=== PATIENT | female | born 1985 ===

== ENCOUNTER 2021-04-13 20:37 | Inpatient (IN) | payer MEDICAID ==
[2021-04-13 21:40] LABS: Basophils # (Auto) 0.1 K/mm3 (0.0-0.1); Basophils % (Auto) 0.9 % (0.0-1.8); Eosinophils # (Auto) 0.2 K/mm3 (0.0-0.4); Eosinophils % (Auto) 2.4 % (0.0-4.3); Hematocrit 34.7 % (30.3-42.9); Hemoglobin 11.2 gm/dl (10.1-14.3); Lymphocytes % (Auto) 34.4 % (13.4-35.0); Mean Corpuscular HGB Conc 32 % (30-34); Mean Corpuscular Volume 99 fl (79-97); Monocytes # (Auto) 0.6 K/mm3 (0.0-0.8); Monocytes % (Auto) 7.1 % (0.0-7.3); Red Blood Count 3.52 M/mm3 (3.65-5.03); Red Cell Distribution Width 14.5 % (13.2-15.2)
[2021-04-13 22:05] LABS: Alanine Aminotransferase 11 units/L (7-56); Albumin 3.1 g/dL (3.9-5); Blood Urea Nitrogen 12 mg/dL (7-17); Calcium 8.4 mg/dL (8.4-10.2); Hemolysis Index 24
[2021-04-13 22:19] LABS: BUN/Creatinine Ratio 24
[2021-04-13 22:31] LABS: Platelet Count 212 K/mm3 (140-440)
[2021-04-14] MEDS ORDERED: MORPHINE 4 MG/1 ML INJ IV ONE ×2 (01:18→03:22)
--- NOTE | 2021-04-14 01:18 | Emergency Department Report ---
ED General Adult HPI - General Chief complaint: Abdominal Pain Stated complaint: PAIN ON LT ABD SIDE FROM SURGERY Time Seen by Provider: 04/14/21 00:47 Source: patient Mode of arrival: Ambulatory Limitations: No Limitations - History of Present Illness Initial comments: Patient is a 35-year-old female who presents with abdominal pain. Patient states that her abdominal pain started getting worse for the last 2 days patient has also been having vomit the vomit is nonbloody nonbilious. She states she had surgery on her colon February in [facility] she states that the pain she is having now is similar to that time when she had surgery - Related Data Allergies Allergy/AdvReac Type Severity Reaction Status Date / Time Latex, Natural Rubber Allergy Hives Verified 04/13/21 21:01 ED Review of Systems ROS: Stated complaint: PAIN ON LT ABD SIDE FROM SURGERY Other details as noted in HPI Constitutional: denies: chills, fever Eyes: denies: eye pain, eye discharge, vision change ENT: denies: ear pain, throat pain Respiratory: denies: cough, shortness of breath, wheezing Cardiovascular: denies: chest pain, palpitations Endocrine: no symptoms reported Gastrointestinal: abdominal pain, nausea, vomiting. denies: diarrhea Genitourinary: denies: urgency, dysuria, discharge Musculoskeletal: denies: back pain, joint swelling, arthralgia Skin: denies: rash, lesions Neurological: denies: headache, weakness, paresthesias Psychiatric: denies: anxiety, depression Hematological/Lymphatic: denies: easy bleeding, easy bruising ED Past Medical Hx - Surgical History Additional Surgical History: gastric bypass 2018, abd surgery February 2021 - Social History Smoking Status: Never Smoker Substance Use Type: None ED Physical Exam - General Limitations: No Limitations General appearance: alert, in no apparent distress - Head Head exam: Present: atraumatic, normocephalic - Eye Eye exam: Present: normal appearance - ENT ENT exam: Present: mucous membranes moist - Neck Neck exam: Present: normal inspection - Respiratory Respiratory exam: Present: normal lung sounds bilaterally. Absent: respiratory distress - Cardiovascular Cardiovascular Exam: Present: regular rate, normal rhythm. Absent: systolic murmur, diastolic murmur, rubs, gallop - GI/Abdominal GI/Abdominal exam: Present: soft, tenderness (left abd tenderness ) - Extremities Exam Extremities exam: Present: normal inspection - Back Exam Back exam: Present: normal inspection - Neurological Exam Neurological exam: Present: alert, oriented X3 - Psychiatric Psychiatric exam: Present: normal affect, normal mood - Skin Skin exam: Present: warm, dry, intact, normal color. Absent: rash ED Course Vital Signs 04/13/21 04/14/21 21:02 00:38 Temperature 97.9 F Pulse Rate 102 H 86 Respiratory 18 17 Rate Blood Pressure 140/93 Blood Pressure 138/96 [Left] O2 Sat by Pulse 98 99 Oximetry - Consultations Consultation #1: 04/14/21 03:[address] Doe he states that he will come see the patient in the morning and then the patient will need an NG tube Consultation #2: 04/14/21 03:[address] Soliz hospitalist he states that he will admit the patient to the hospital ED Medical Decision Making - Lab Data Result diagrams: 04/13/21 21:15 04/13/21 21:15 Lab Results 04/13/21 04/13/21 04/13/21 Range/Units 21:15 21:15 21:15 WBC 8.6 (4.5-11.0) K/mm3 RBC 3.52 L (3.65-5.03) M/mm3 Hgb 11.2 (10.1-14.3) gm/dl Hct 34.7 (30.3-42.9) % MCV 99 H (79-97) fl MCH 32 (28-32) pg MCHC 32 (30-34) % RDW 14.5 (13.2-15.2) % Plt Count 212 (140-440) K/mm3 Lymph % (Auto) 34.4 (13.4-35.0) % [place] % (Auto) 7.1 (0.0-7.3) % Eos % (Auto) 2.4 (0.0-4.3) % Baso % (Auto) 0.9 (0.0-1.8) % Lymph # (Auto) 3.0 (1.2-5.4) K/mm3 [place] # (Auto) 0.6 (0.0-0.8) K/mm3 Eos # (Auto) 0.2 (0.0-0.4) K/mm3 Baso # (Auto) 0.1 (0.0-0.1) K/mm3 Seg Neutrophils % 55.2 (40.0-70.0) % Seg Neutrophils # 4.8 (1.8-7.7) K/mm3 Sodium 139 (137-145) mmol/L Potassium 3.9 (3.6-5.0) mmol/L Chloride 106.9 (98-107) mmol/L Carbon Dioxide 21 L (22-30) mmol/L Anion Gap 15 mmol/L BUN 12 (7-17) mg/dL Creatinine 0.5 L (0.6-1.2) mg/dL Estimated GFR > 60 ml/min BUN/Creatinine Ratio 24 % Glucose 83 (65-100) mg/dL Calcium 8.4 (8.4-10.2) mg/dL Total Bilirubin 0.30 (0.1-1.2) mg/dL AST 18 (5-40) units/L ALT 11 (7-56) units/L Alkaline Phosphatase 99 (35-129) units/L Total Protein 6.6 (6.3-8.2) g/dL Albumin 3.1 L (3.9-5) g/dL Albumin/Globulin Ratio 0.9 % Lipase 39 (13-60) units/L HCG, Qual Negative (Negative) Urine Color (Yellow) Urine Turbidity (Clear) Urine pH (5.0-7.0) Ur Specific [place] (1.003-1.030) Urine Protein (Negative) mg/dL Urine Glucose (UA) (Negative) mg/dL Urine Ketones (Negative) mg/dL Urine Blood (Negative) Urine Nitrite (Negative) Ur Reducing Substances Urine Bilirubin (Negative) Urine Ictotest Urine Urobilinogen (<2.0) mg/dL Ur Leukocyte Esterase (Negative) Urine WBC (Auto) (0.0-6.0) /HPF Urine RBC (Auto) (0.0-6.0) /HPF U Epithel Cells (Auto) (0-13.0) /HPF Urine Bacteria (Auto) (Negative) /HPF Calcium Oxalate Crystal Urine Mucus /HPF 04/14/21 Range/Units 01:30 WBC (4.5-11.0) K/mm3 RBC (3.65-5.03) M/mm3 Hgb (10.1-14.3) gm/dl Hct (30.3-42.9) % MCV (79-97) fl MCH (28-32) pg MCHC (30-34) % RDW (13.2-15.2) % Plt Count (140-440) K/mm3 Lymph % (Auto) (13.4-35.0) % [place] % (Auto) (0.0-7.3) % Eos % (Auto) (0.0-4.3) % Baso % (Auto) (0.0-1.8) % Lymph # (Auto) (1.2-5.4) K/mm3 [place] # (Auto) (0.0-0.8) K/mm3 Eos # (Auto) (0.0-0.4) K/mm3 Baso # (Auto) (0.0-0.1) K/mm3 Seg Neutrophils % (40.0-70.0) % Seg Neutrophils # (1.8-7.7) K/mm3 Sodium (137-145) mmol/L Potassium (3.6-5.0) mmol/L Chloride (98-107) mmol/L Carbon Dioxide (22-30) mmol/L Anion Gap mmol/L BUN (7-17) mg/dL Creatinine (0.6-1.2) mg/dL Estimated GFR ml/min BUN/Creatinine Ratio % Glucose (65-100) mg/dL Calcium (8.4-10.2) mg/dL Total Bilirubin (0.1-1.2) mg/dL AST (5-40) units/L ALT (7-56) units/L Alkaline Phosphatase (35-129) units/L Total Protein (6.3-8.2) g/dL Albumin (3.9-5) g/dL Albumin/Globulin Ratio % Lipase (13-60) units/L HCG, Qual (Negative) Urine Color Yellow (Yellow) Urine Turbidity Slightly-cloudy (Clear) Urine pH 5.0 (5.0-7.0) Ur Specific [place] 1.026 (1.003-1.030) Urine Protein 30 mg/dl (Negative) mg/dL Urine Glucose (UA) Neg (Negative) mg/dL Urine Ketones Neg (Negative) mg/dL Urine Blood Neg (Negative) Urine Nitrite Neg (Negative) Ur Reducing Substances Not Reportable Urine Bilirubin Neg (Negative) Urine Ictotest Not Reportable Urine Urobilinogen < 2.0 (<2.0) mg/dL Ur Leukocyte Esterase Neg (Negative) Urine WBC (Auto) 4.0 (0.0-6.0) /HPF Urine RBC (Auto) 7.0 (0.0-6.0) /HPF U Epithel Cells (Auto) < 1.0 (0-13.0) /HPF Urine Bacteria (Auto) 1+ (Negative) /HPF Calcium Oxalate Crystal 1+ Urine Mucus Few /HPF - Radiology Data Radiology results: report reviewed, image reviewed CT scan of abdomen: Shows dilated segment of small bowel around 10 cm concerning for potential obstruction - Medical Decision Making Chief medical diagnosis: Small bowel obstruction Differential medical diagnosis: Colitis, surgical adhesions, volvulus I will get CAT scan I will get IV fluids I will get NG tube I will give IV Zofran and morphine and surgery consult Critical Care Time: Yes (60 min) Critical care attestation.: If time is entered above; I have spent that time in minutes in the direct care of this critically ill patient, excluding procedure time. ED Disposition Clinical Impression: SBO (small bowel obstruction) Nausea and vomiting Qualifiers: Vomiting type: unspecified Vomiting Intractability: unspecified Qualified Code(s): R11.2 - Nausea with vomiting, unspecified Disposition: DC-09 OP ADMIT IP TO THIS HOSP Is pt being admited?: Yes Does the pt Need Aspirin: No Condition: Stable Instructions: Abdominal Pain (ED) Referrals: PRIMARY CARE, [Primary Care Provider] - 3-5 Days
[2021-04-14 02:37] LABS: Bacteria,Urine 1+ /HPF (Negative); Calcium Oxalate Crystals,Urine 1+; Mucus,Urine FEW /HPF
[2021-04-14 02:38] LABS: Bilirubin,Urine NEG (Negative); Blood,Urine NEG (Negative); Color,Urine Yellow (Yellow); Urobilinogen,Urine < 2.0 mg/dL (<2.0)
--- NOTE | 2021-04-14 03:10 | Cat Scan Report ---
CT ABDOMEN AND PELVIS WITH CONTRAST INDICATION: February 2021 abdominal surgery, now with LEFT abd pain CONTRAST: 100 cc Omnipaque 300 IV COMPARISON: None available. All CT scans at this location are performed using CT dose reduction for ALARA by means of automated e xposure control. FINDINGS: Lung bases show patchy areas of mildly increased interstitial markings which could be due t o pulmonary edema but patchy basilar pneumonitis is possible. Elevation of the left hemidiaphragm is seen of unknown chronicity. No pneumoperitoneum is seen. Gastric bypass changes are noted. No urinary obstructive changes are see n. Gallbladder has been removed. No biliary dilatation is seen. No masses are noted. Minimal free flu id is seen in the pelvis which is nonspecific. Small physiologic type ovarian cysts are noted. An IUD is seen in the uterus. Appendix is not visualized. Mild gaseous distention of colon is seen mostly involving the distal bernstein sverse colon through the descending colon with continuing into the rectosigmoid area. No colonic lesi ons are noted. Surgical changes are seen in small bowel in the mid and right abdomen. Edema is noted in the mesentery in this general area of the right abdomen in the mesentery as a whirled appearance. In the midline of a dilated small bowel loop at the site of surgical change shows moderately prominen t wall edema. I do not see definite wall enhancement. No perforation or abscess is seen. No gas is se en in the bowel wall. No portal venous gas is seen. Other loops of small bowel in the right abdomen a nd right lower quadrant are not distended though not truly dilated. The dilated edematous segment has a length of approximately 10 cm. IMPRESSION: Abnormal appearance of small bowel is seen at the site of surgical change in the mid abdo men. A dilated segment is seen in this area of surgery which could be a chronic finding but there raj ears to be significant wall thickening of this segment and there is moderate edema in the mesentery. The mesentery also has a whirled appearance. That swirling raises the question of a closed loop obstr uction though the configuration of the bowel is not clearly consistent with that diagnosis. This shou ld be considered however. I do not see obvious evidence of bowel necrosis. No perforation or abscess are seen. Signer Name: Travon Nash MD Signed: 04/14/2021 3:05 AM Workstation Name: [id number]
[2021-04-14] MEDS ORDERED: ONDANSETRON 4 MG/2 ML INJ IV PRN (03:46)
--- NOTE | 2021-04-14 04:10 | XRay Report ---
ABDOMEN AP SUPINE 0400 INDICATION: Post NG tube placement COMPARISON: None available. FINDINGS: Nasogastric tube extends well into the stomach. Signer Name: Travon Nash MD Signed: 04/14/2021 4:06 AM Workstation Name: [id number]
[2021-04-14] MEDS ORDERED: METOCLOPRAMIDE 10 MG/2 ML INJ IV PRN (04:43)
[2021-04-14] MEDS ORDERED: ALBUTEROL 2.5 MG/3 ML NEBU IH PRN (04:43)
[2021-04-14] MEDS ORDERED: diphenhydrAMINE 50 MG/ML VIAL IV ONE (04:48)
--- NOTE | 2021-04-14 04:50 | History and Physical Report ---
History of Present Illness Date of examination: 04/14/21 Date of admission: 04/14/21 03:46 Chief complaint: Abdominal pain Nausea vomiting History of present illness: 35-year-old female with history of gastric bypass surgery was brought to the emergency room because of abdominal pain. Patient abdominal pain started getting worse for the last 2 days patient has also been having vomit the vomit is nonbloody nonbilious. She states she had surgery on her colon February in [facility] she states that the pain she is having now is similar to that time when she had surgery In the ER patient has a CT scan of the abdomen which showed abnormal appearance of small bowel is seen at the site of surgical change in the mid abdomen. A dilated segment is seen in this area of surgery which could be a chronic finding but there appears to be significant wall thickening of the segment and there is more moderate edema in this mesentery. The mesentery is also has a whirled.the swi raises the question of a closed-loop obstruction though the configuration of the bowel is not clearly consistent with that diagnosis. Past History Past Medical History: other (Gastric bypass) Medications and Allergies Allergies Allergy/AdvReac Type Severity Reaction Status Date / Time Latex, Natural Rubber Allergy Hives Verified 04/13/21 21:01 Active Meds: Active Medications Morphine Sulfate (Morphine 2 Mg/1 Ml Inj) 3 mg IV Q4H PRN PRN Reason: Pain, Moderate (4-6) Ondansetron HCl (Ondansetron 4 Mg/2 Ml Inj) 4 mg IV Q8H PRN PRN Reason: Nausea And Vomiting Sodium Chloride (Sodium Chloride 0.9% 10 Ml Flush Syringe) 10 ml IV BID MOR Sodium Chloride (Sodium Chloride 0.9% 10 Ml Flush Syringe) 10 ml IV PRN PRN PRN Reason: LINE FLUSH Review of Systems Gastrointestinal: abdominal pain, nausea, vomiting Exam - Constitutional Vitals: Temp Pulse Resp BP Pulse Ox 97.9 F 86 17 138/96 99 04/13/21 21:02 04/14/21 00:38 04/14/21 00:38 04/14/21 00:38 04/14/21 00:38 General appearance: Present: no acute distress, well-nourished - EENT Eyes: Present: PERRL ENT: hearing intact, clear oral mucosa - Neck Neck: Present: supple, normal ROM - Respiratory Respiratory effort: normal Respiratory: bilateral: CTA - Cardiovascular Heart Sounds: Present: S1 & S2. Absent: rub, click - Extremities Extremities: pulses symmetrical, No edema Peripheral Pulses: within normal limits - Abdominal General gastrointestinal: Present: soft, tender, non-distended, normal bowel sounds, other (Tenderness to left abdominal tenderness) Female genitourinary: Present: normal - Integumentary Integumentary: Present: clear, warm, dry - Musculoskeletal Musculoskeletal: gait normal, strength equal bilaterally - Psychiatric Psychiatric: appropriate mood/affect, intact judgment & insight - Neurologic Neurologic: CNII-XII intact, moves all extremities Results - Labs CBC & Chem 7: 04/13/21 21:15 04/13/21 21:15 Labs: Laboratory Last Values WBC 8.6 K/mm3 (4.5-11.0) 04/13/21 21:15 RBC 3.52 M/mm3 (3.65-5.03) L 04/13/21 21:15 Hgb 11.2 gm/dl (10.1-14.3) 04/13/21 21:15 Hct 34.7 % (30.3-42.9) 04/13/21 21:15 MCV 99 fl (79-97) H 04/13/21 21:15 MCH 32 pg (28-32) 04/13/21 21:15 MCHC 32 % (30-34) 04/13/21 21:15 RDW 14.5 % (13.2-15.2) 04/13/21 21:15 Plt Count 212 K/mm3 (140-440) 04/13/21 21:15 Lymph % (Auto) 34.4 % (13.4-35.0) 04/13/21 21:15 [place] % (Auto) 7.1 % (0.0-7.3) 04/13/21 21:15 Eos % (Auto) 2.4 % (0.0-4.3) 04/13/21 21:15 Baso % (Auto) 0.9 % (0.0-1.8) 04/13/21 21:15 Lymph # (Auto) 3.0 K/mm3 (1.2-5.4) 04/13/21 21:15 [place] # (Auto) 0.6 K/mm3 (0.0-0.8) 04/13/21 21:15 Eos # (Auto) 0.2 K/mm3 (0.0-0.4) 04/13/21 21:15 Baso # (Auto) 0.1 K/mm3 (0.0-0.1) 04/13/21 21:15 Seg Neutrophils % 55.2 % (40.0-70.0) 04/13/21 21:15 Seg Neutrophils # 4.8 K/mm3 (1.8-7.7) 04/13/21 21:15 Sodium 139 mmol/L (137-145) 04/13/21 21:15 Potassium 3.9 mmol/L (3.6-5.0) 04/13/21 21:15 Chloride 106.9 mmol/L (98-107) 04/13/21 21:15 Carbon Dioxide 21 mmol/L (22-30) L 04/13/21 21:15 Anion Gap 15 mmol/L 04/13/21 21:15 BUN 12 mg/dL (7-17) 04/13/21 21:15 Creatinine 0.5 mg/dL (0.6-1.2) L 04/13/21 21:15 Estimated GFR > 60 ml/min 04/13/21 21:15 BUN/Creatinine Ratio 24 % 04/13/21 21:15 Glucose 83 mg/dL (65-100) 04/13/21 21:15 Lactic Acid 1.20 mmol/L (0.7-2.0) 04/14/21 04:02 Calcium 8.4 mg/dL (8.4-10.2) 04/13/21 21:15 Total Bilirubin 0.30 mg/dL (0.1-1.2) 04/13/21 21:15 AST 18 units/L (5-40) 04/13/21 21:15 ALT 11 units/L (7-56) 04/13/21 21:15 Alkaline Phosphatase 99 units/L (35-129) 04/13/21 21:15 Total Protein 6.6 g/dL (6.3-8.2) 04/13/21 21:15 Albumin 3.1 g/dL (3.9-5) L 04/13/21 21:15 Albumin/Globulin Ratio 0.9 % 04/13/21 21:15 Lipase 39 units/L (13-60) 04/13/21 21:15 HCG, Qual Negative (Negative) 04/13/21 21:15 Urine Color Yellow (Yellow) 04/14/21 01:30 Urine Turbidity Slightly-cloudy (Clear) 04/14/21 01:30 Urine pH 5.0 (5.0-7.0) 04/14/21 01:30 Ur Specific [place] 1.026 (1.003-1.030) 04/14/21 01:30 Urine Protein 30 mg/dl mg/dL (Negative) 04/14/21 01:30 Urine Glucose (UA) Neg mg/dL (Negative) 04/14/21 01:30 Urine Ketones Neg mg/dL (Negative) 04/14/21 01:30 Urine Blood Neg (Negative) 04/14/21 01:30 Urine Nitrite Neg (Negative) 04/14/21 01:30 Ur Reducing Substances Not Reportable 04/14/21 01:30 Urine Bilirubin Neg (Negative) 04/14/21 01:30 Urine Ictotest Not Reportable 04/14/21 01:30 Urine Urobilinogen < 2.0 mg/dL (<2.0) 04/14/21 01:30 Ur Leukocyte Esterase Neg (Negative) 04/14/21 01:30 Urine WBC (Auto) 4.0 /HPF (0.0-6.0) 04/14/21 01:30 Urine RBC (Auto) 7.0 /HPF (0.0-6.0) 04/14/21 01:30 U Epithel Cells (Auto) < 1.0 /HPF (0-13.0) 04/14/21 01:30 Urine Bacteria (Auto) 1+ /HPF (Negative) 04/14/21 01:30 Calcium Oxalate Crystal 1+ 04/14/21 01:30 Urine Mucus Few /HPF 04/14/21 01:30 - Imaging and Cardiology CT scan - abdomen: report reviewed Assessment and Plan VTE prophylaxis?: Chemical Plan of care discussed with patient/family: Yes - Patient Problems (1) Abdominal pain Current Visit: Yes Status: Acute Plan to address problem: Admit the patient to the medical floor. Nothing by mouth. D5 half-normal saline at the rate of 125 cc/h. Tylenol 650 p.o. every 6 as needed. Protonix 40 mg IV every 12 hours. Zofran 4 mg IV every 8 hours as needed. Will consult surgery for evaluation (2) Nausea and vomiting Current Visit: Yes Status: Acute Qualifiers: Vomiting type: unspecified Vomiting Intractability: unspecified Qualified Code(s): R11.2 - Nausea with vomiting, unspecified Plan to address problem: Nothing by mouth. D5 half-normal saline at the rate of 125 cc/h. Tylenol 650 p.o. every 6 as needed. Protonix 40 mg IV every 12 hours. Zofran 4 mg IV every 8 hours as needed. Will consult surgery for evaluation (3) SBO (small bowel obstruction) Current Visit: Yes Status: Acute Plan to address problem: NG tube suction. Nothing by mouth. D5 half-normal saline at the rate of 125 cc/h. Protonix 40 mg IV every 12 hours. Reglan 10 mg IV every 6-8 hours as needed. Will consult surgery for evaluation (4) Gastric bypass status for obesity Current Visit: Yes Status: Acute Plan to address problem: Patient has a history of gastric bypass surgery in 2018 and abdominal surgery in February 2021 (5) DVT prophylaxis Current Visit: Yes Status: Acute Plan to address problem: Heparin 5000 units subcu every 8 hours per DVT prophylaxis. Protonix 40 mg IV every 12 hours for GI prophylaxis. Patient is a full code
[2021-04-14] MEDS: D5W/0.45% NACL 1,000 ML IV SCH ×3 (06:13→21:29)
[2021-04-14] MEDS: HEPARIN 5,000 UNIT/1 ML VIAL SUB-Q SCH ×3 (06:13→21:30)
[2021-04-14] MEDS: ONDANSETRON 4 MG/2 ML INJ IV PRN ×2 (06:36→16:54)
[2021-04-14] MEDS: MORPHINE 2 MG/1 ML INJ IV PRN ×3 (06:36→16:53)
[2021-04-14] MEDS: IPRATROPIUM/ALBUTEROL SULFATE 3 ML AMPUL.NEB IH SCH ×2 (08:32→20:31)
[2021-04-14] MEDS: DICYCLOMINE 10 MG CAP PO PRN ×2 (10:43→20:45)
[2021-04-14] MEDS: PANTOPRAZOLE 40 MG INJ IV SCH ×2 (10:44→21:30)
--- NOTE | 2021-04-14 14:50 | Progress Note ---
Assessment and Plan Assessment and plan: -- Abdominal pain Current Visit: Yes Status: Acute N.p.o. status, IV fluids --Intractable nausea and vomiting Current Visit: Yes Status: Acute IV fluids antiemetics supportive care Continue Protonix --SBO (small bowel obstruction) Current Visit: Yes Status: Acute Intermittent NG tube suction. Nothing by mouth. D5 half-normal saline at the rate of 125 cc/h. Protonix 40 mg IV every 12 hours. Surgery following Serial abdominal x-rays --h/o Gastric bypass surgery[weight reduction procedure] Current Visit: Yes Status: Acute Patient has a history of gastric bypass surgery in 2014, 2018 and abdominal surgery in February 2021 Possible cause of obstruction adhesions. Protonix --GERD Protonix --Obesity BMI 33.6; Diet modification, exercise as tolerated . and weight reduction -- DVT prophylaxis Current Visit: Yes Status: Acute Heparin 5000 units subcu every 8 hours per DVT prophylaxis. Follow surgery evaluation recommendations We will closely monitor the patient and adjust management as needed. Plan of care reviewed with patient and her nurse Advance care plan 32 minutes History Interval history: I have seen and examined the patient at the bedside Patient's chart and medications reviewed Patient was admitted with abdominal pain and small bowel obstruction Patient did not have flatus or bowel movement N.p.o. status Vital signs noted Hospitalist Physical - Constitutional Vitals: Temp Pulse Resp BP Pulse Ox 97.5 F L 85 18 148/84 95 04/14/21 11:33 04/14/21 05:33 04/14/21 11:33 04/14/21 11:33 04/14/21 05:33 General appearance: Present: no acute distress, well-nourished - EENT Eyes: Present: PERRL, EOM intact - Neck Neck: Present: supple, normal ROM - Respiratory Respiratory effort: normal Respiratory: bilateral: diminished, negative: rales, rhonchi, wheezing - Cardiovascular Rhythm: regular Heart Sounds: Present: S1 & S2 - Extremities Extremities: no ischemia, No edema - Abdominal General gastrointestinal: soft, non-tender, non-distended - Integumentary Integumentary: Present: clear, warm - Psychiatric Psychiatric: appropriate mood/affect, cooperative - Neurologic Neurologic: CNII-XII intact, moves all extremities Results - Labs CBC & Chem 7: 04/13/21 21:15 04/13/21 21:15 Labs: Laboratory Last Values WBC 8.6 K/mm3 (4.5-11.0) 04/13/21 21:15 RBC 3.52 M/mm3 (3.65-5.03) L 04/13/21 21:15 Hgb 11.2 gm/dl (10.1-14.3) 04/13/21 21:15 Hct 34.7 % (30.3-42.9) 04/13/21 21:15 MCV 99 fl (79-97) H 04/13/21 21:15 MCH 32 pg (28-32) 04/13/21 21:15 MCHC 32 % (30-34) 04/13/21 21:15 RDW 14.5 % (13.2-15.2) 04/13/21 21:15 Plt Count 212 K/mm3 (140-440) 04/13/21 21:15 Lymph % (Auto) 34.4 % (13.4-35.0) 04/13/21 21:15 [place] % (Auto) 7.1 % (0.0-7.3) 04/13/21 21:15 Eos % (Auto) 2.4 % (0.0-4.3) 04/13/21 21:15 Baso % (Auto) 0.9 % (0.0-1.8) 04/13/21 21:15 Lymph # (Auto) 3.0 K/mm3 (1.2-5.4) 04/13/21 21:15 [place] # (Auto) 0.6 K/mm3 (0.0-0.8) 04/13/21 21:15 Eos # (Auto) 0.2 K/mm3 (0.0-0.4) 04/13/21 21:15 Baso # (Auto) 0.1 K/mm3 (0.0-0.1) 04/13/21 21:15 Seg Neutrophils % 55.2 % (40.0-70.0) 04/13/21 21:15 Seg Neutrophils # 4.8 K/mm3 (1.8-7.7) 04/13/21 21:15 Sodium 139 mmol/L (137-145) 04/13/21 21:15 Potassium 3.9 mmol/L (3.6-5.0) 04/13/21 21:15 Chloride 106.9 mmol/L (98-107) 04/13/21 21:15 Carbon Dioxide 21 mmol/L (22-30) L 04/13/21 21:15 Anion Gap 15 mmol/L 04/13/21 21:15 BUN 12 mg/dL (7-17) 04/13/21 21:15 Creatinine 0.5 mg/dL (0.6-1.2) L 04/13/21 21:15 Estimated GFR > 60 ml/min 04/13/21 21:15 BUN/Creatinine Ratio 24 % 04/13/21 21:15 Glucose 83 mg/dL (65-100) 04/13/21 21:15 Lactic Acid 1.20 mmol/L (0.7-2.0) 04/14/21 04:02 Calcium 8.4 mg/dL (8.4-10.2) 04/13/21 21:15 Total Bilirubin 0.30 mg/dL (0.1-1.2) 04/13/21 21:15 AST 18 units/L (5-40) 04/13/21 21:15 ALT 11 units/L (7-56) 04/13/21 21:15 Alkaline Phosphatase 99 units/L (35-129) 04/13/21 21:15 Total Protein 6.6 g/dL (6.3-8.2) 04/13/21 21:15 Albumin 3.1 g/dL (3.9-5) L 04/13/21 21:15 Albumin/Globulin Ratio 0.9 % 04/13/21 21:15 Lipase 39 units/L (13-60) 04/13/21 21:15 HCG, Qual Negative (Negative) 04/13/21 21:15 Urine Color Yellow (Yellow) 04/14/21 01:30 Urine Turbidity Slightly-cloudy (Clear) 04/14/21 01:30 Urine pH 5.0 (5.0-7.0) 04/14/21 01:30 Ur Specific [place] 1.026 (1.003-1.030) 04/14/21 01:30 Urine Protein 30 mg/dl mg/dL (Negative) 04/14/21 01:30 Urine Glucose (UA) Neg mg/dL (Negative) 04/14/21 01:30 Urine Ketones Neg mg/dL (Negative) 04/14/21 01:30 Urine Blood Neg (Negative) 04/14/21 01:30 Urine Nitrite Neg (Negative) 04/14/21 01:30 Ur Reducing Substances Not Reportable 04/14/21 01:30 Urine Bilirubin Neg (Negative) 04/14/21 01:30 Urine Ictotest Not Reportable 04/14/21 01:30 Urine Urobilinogen < 2.0 mg/dL (<2.0) 04/14/21 01:30 Ur Leukocyte Esterase Neg (Negative) 04/14/21 01:30 Urine WBC (Auto) 4.0 /HPF (0.0-6.0) 04/14/21 01:30 Urine RBC (Auto) 7.0 /HPF (0.0-6.0) 04/14/21 01:30 U Epithel Cells (Auto) < 1.0 /HPF (0-13.0) 04/14/21 01:30 Urine Bacteria (Auto) 1+ /HPF (Negative) 04/14/21 01:30 Calcium Oxalate Crystal 1+ 04/14/21 01:30 Urine Mucus Few /HPF 04/14/21 01:30 Active Medications - Current Medications Current Medications: Generic Name Dose Route Start Last Admin Trade Name Freq PRN Reason Stop Dose Admin Acetaminophen 650 mg 04/14/21 04:43 Acetaminophen 325 Mg Tab PO Q4H PRN Pain MILD(1-3)/Fever >100.5/BLOOM Albuterol 2.5 mg 04/14/21 04:43 Albuterol 2.5 Mg/3 Ml Nebu IH Q4HRT PRN Shortness Of Breath Albuterol/Ipratropium 1 ampul 04/14/21 08:00 04/14/21 08:32 Ipratropium/Albuterol Sulfate 3 Ml Ampul.Neb IH Not Given Q6HRT MOR Dicyclomine HCl 10 mg 04/14/21 10:00 04/14/21 10:43 Dicyclomine 10 Mg Cap PO 10 mg QID PRN Administration Spasms Heparin Sodium (Porcine) 5,000 unit 04/14/21 06:00 04/14/21 06:13 Heparin 5,000 Unit/1 Ml Vial SUB-Q 5,000 unit Q8HR MOR Administration Hydralazine HCl 10 mg 04/14/21 04:45 Hydralazine 20 Mg/1 Ml Inj IV Q6H PRN htn Dextrose/Sodium Chloride 1,000 mls @ 125 mls/hr 04/14/21 05:00 04/14/21 06:13 D5/0.45ns IV 125 mls/hr DIRECT MOR Administration Metoclopramide HCl 10 mg 04/14/21 04:43 Metoclopramide 10 Mg/2 Ml Inj IV Q6H PRN Nausea And Vomiting Morphine Sulfate 3 mg 04/14/21 03:46 04/14/21 10:22 Morphine 2 Mg/1 Ml Inj IV 3 mg Q4H PRN Administration Pain, Moderate (4-6) Ondansetron HCl 4 mg 04/14/21 04:43 04/14/21 06:36 Ondansetron 4 Mg/2 Ml Inj IV 4 mg Q8H PRN Administration Nausea And Vomiting Pantoprazole Sodium 40 mg 04/14/21 10:00 04/14/21 10:44 Pantoprazole 40 Mg Inj IV 40 mg BID MOR Administration Sodium Chloride 10 ml 04/14/21 10:00 04/14/21 10:45 Sodium Chloride 0.9% 10 Ml Flush Syringe IV 10 ml BID MOR Administration Sodium Chloride 10 ml 04/14/21 04:43 Sodium Chloride 0.9% 10 Ml Flush Syringe IV PRN PRN LINE FLUSH
--- NOTE | 2021-04-14 18:59 | Consultation ---
History of Present Illness Consult date: 04/14/21 Reason for consult: abdominal pain - History of present illness History of present illness: 35 yo female s/p gastric bypass with 2 days LUQ pain, nausea and vomiting. She had similar symptoms 2 months ago and had an operation where her "colon was untwisted". She last passed flatus early yesterday. Her abdominal pain is improved since admission and NG decompression was initiated. No melena or hematochezia. Past History Past Medical History: other (Gastric bypass) Medications and Allergies Allergies Allergy/AdvReac Type Severity Reaction Status Date / Time Latex, Natural Rubber Allergy Hives Verified 04/13/21 21:01 Active Meds: Active Medications Acetaminophen (Acetaminophen 325 Mg Tab) 650 mg PO Q4H PRN PRN Reason: Pain MILD(1-3)/Fever >100.5/BLOOM Albuterol (Albuterol 2.5 Mg/3 Ml Nebu) 2.5 mg IH Q4HRT PRN PRN Reason: Shortness Of Breath Albuterol/Ipratropium (Ipratropium/Albuterol Sulfate 3 Ml Ampul.Neb) 1 ampul IH Q6HRT [facility] Last Admin: 04/14/21 08:32 Dose: Not Given Documented by: Dicyclomine HCl (Dicyclomine 10 Mg Cap) 10 mg PO QID PRN PRN Reason: Spasms Last Admin: 04/14/21 10:43 Dose: 10 mg Documented by: Heparin Sodium (Porcine) (Heparin 5,000 Unit/1 Ml Vial) 5,000 unit SUB-Q Q8HR [facility] Last Admin: 04/14/21 14:02 Dose: 5,000 unit Documented by: Hydralazine HCl (Hydralazine 20 Mg/1 Ml Inj) 10 mg IV Q6H PRN PRN Reason: htn Dextrose/Sodium Chloride (D5/0.45ns) 1,000 mls @ 125 mls/hr IV DIRECT [facility] Last Admin: 04/14/21 06:13 Dose: 125 mls/hr Documented by: Metoclopramide HCl (Metoclopramide 10 Mg/2 Ml Inj) 10 mg IV Q6H PRN PRN Reason: Nausea And Vomiting Morphine Sulfate (Morphine 2 Mg/1 Ml Inj) 3 mg IV Q4H PRN PRN Reason: Pain, Moderate (4-6) Last Admin: 04/14/21 16:53 Dose: 3 mg Documented by: Ondansetron HCl (Ondansetron 4 Mg/2 Ml Inj) 4 mg IV Q8H PRN PRN Reason: Nausea And Vomiting Last Admin: 04/14/21 16:54 Dose: 4 mg Documented by: Pantoprazole Sodium (Pantoprazole 40 Mg Inj) 40 mg IV BID [facility] Last Admin: 04/14/21 10:44 Dose: 40 mg Documented by: Sodium Chloride (Sodium Chloride 0.9% 10 Ml Flush Syringe) 10 ml IV BID [facility] Last Admin: 04/14/21 10:45 Dose: 10 ml Documented by: Sodium Chloride (Sodium Chloride 0.9% 10 Ml Flush Syringe) 10 ml IV PRN PRN PRN Reason: LINE FLUSH Review of Systems All systems: negative (none) Exam Vital Signs Temp Pulse Resp BP Pulse Ox 97.9 F 102 H 18 140/93 98 04/13/21 21:02 04/13/21 21:02 04/13/21 21:02 04/13/21 21:02 04/13/21 21:02 - General physical appearance Positive: well developed, well nourished, no distress - Eyes Positive: PERRL, normal occular movement - ENT Positive: normal pinna, normal nares, normal mucosa, no hearing loss, no congestion - Neck Positive: no masses, no bruits, trachea midline, no venous distension - Respiratory Positive: normal expansion, normal respiratory effort, clear to auscultation - Cardiovascular Rhythm: regular Heart Sounds: Present: S1 & S2. Absent: rub, click - Extremities Extremities: no ischemia, pulses symmetrical, No edema - Breasts Breasts: normal, no mass, no skin changes - Abdomen Abdomen: Present: soft, bowel sounds hypoactive. Absent: tender, distended Hernia: none - Genitourinary Male Genitourinary: normal Female Genitourinary: normal - Integumentary no rash, no growths, no abnormal pigmentation - Neurologic Neurologic: alert and oriented to time, place and person, motor strength and sensation are grossly intact - Musculoskeletal normal gait, normal posture - Psychiatric Psychiatric: appropriate mood/affect, intact judgment & insight Results - Labs 04/13/21 21:15 04/13/21 21:15 Abnormal lab results 04/13/21 04/13/21 Range/Units 21:15 21:15 RBC 3.52 L (3.65-5.03) M/mm3 MCV 99 H (79-97) fl Carbon Dioxide 21 L (22-30) mmol/L Creatinine 0.5 L (0.6-1.2) mg/dL Albumin 3.1 L (3.9-5) g/dL Diabetes panel 04/13/21 Range/Units 21:15 Sodium 139 (137-145) mmol/L Potassium 3.9 (3.6-5.0) mmol/L Chloride 106.9 (98-107) mmol/L Carbon Dioxide 21 L (22-30) mmol/L BUN 12 (7-17) mg/dL Creatinine 0.5 L (0.6-1.2) mg/dL Glucose 83 (65-100) mg/dL Calcium 8.4 (8.4-10.2) mg/dL AST 18 (5-40) units/L ALT 11 (7-56) units/L Alkaline Phosphatase 99 (35-129) units/L Total Protein 6.6 (6.3-8.2) g/dL Albumin 3.1 L (3.9-5) g/dL Calcium panel 04/13/21 Range/Units 21:15 Calcium 8.4 (8.4-10.2) mg/dL Albumin 3.1 L (3.9-5) g/dL Pituitary panel 04/13/21 Range/Units 21:15 Sodium 139 (137-145) mmol/L Potassium 3.9 (3.6-5.0) mmol/L Chloride 106.9 (98-107) mmol/L Carbon Dioxide 21 L (22-30) mmol/L BUN 12 (7-17) mg/dL Creatinine 0.5 L (0.6-1.2) mg/dL Glucose 83 (65-100) mg/dL Calcium 8.4 (8.4-10.2) mg/dL Adrenal panel 04/13/21 Range/Units 21:15 Sodium 139 (137-145) mmol/L Potassium 3.9 (3.6-5.0) mmol/L Chloride 106.9 (98-107) mmol/L Carbon Dioxide 21 L (22-30) mmol/L BUN 12 (7-17) mg/dL Creatinine 0.5 L (0.6-1.2) mg/dL Glucose 83 (65-100) mg/dL Calcium 8.4 (8.4-10.2) mg/dL Total Bilirubin 0.30 (0.1-1.2) mg/dL AST 18 (5-40) units/L ALT 11 (7-56) units/L Alkaline Phosphatase 99 (35-129) units/L Total Protein 6.6 (6.3-8.2) g/dL Albumin 3.1 L (3.9-5) g/dL - Imaging CT scan - abdomen: report reviewed CT scan - pelvis: report reviewed Assessment and Plan - Patient Problems (1) SBO (small bowel obstruction) Current Visit: Yes Status: Acute Plan to address problem: 1) Continue NG suctioning 2) CBC, BMP and AXR in the am
[2021-04-14] MEDS: ACETAMINOPHEN 325 MG TAB PO PRN (20:37)
[2021-04-15] MEDS: MORPHINE 2 MG/1 ML INJ IV PRN ×4 (00:06→22:41)
[2021-04-15] MEDS: IPRATROPIUM/ALBUTEROL SULFATE 3 ML AMPUL.NEB IH SCH ×2 (01:53→01:54)
[2021-04-15] MEDS: hydrALAZINE 20 MG/1 ML INJ IV PRN ×2 (04:43→11:57)
[2021-04-15 04:44] LABS: Basophils # (Auto) 0.1 K/mm3 (0.0-0.1); Basophils % (Auto) 0.7 % (0.0-1.8); Eosinophils # (Auto) 0.2 K/mm3 (0.0-0.4); Eosinophils % (Auto) 1.7 % (0.0-4.3); Hemoglobin 11.8 gm/dl (10.1-14.3); Lymphocytes # (Auto) 1.5 K/mm3 (1.2-5.4); Lymphocytes % (Auto) 12.6 % (13.4-35.0); Mean Corpuscular HGB Conc 33 % (30-34); Mean Corpuscular Volume 97 fl (79-97); Monocytes % (Auto) 8.3 % (0.0-7.3); Red Blood Count 3.71 M/mm3 (3.65-5.03)
[2021-04-15 05:05] LABS: Blood Urea Nitrogen 10 mg/dL (7-17); Calcium 8.6 mg/dL (8.4-10.2); Hemolysis Index 15
[2021-04-15 05:07] LABS: BUN/Creatinine Ratio 20
[2021-04-15] MEDS: D5W/0.45% NACL 1,000 ML IV SCH ×2 (05:13→09:04)
[2021-04-15] MEDS: HEPARIN 5,000 UNIT/1 ML VIAL SUB-Q SCH ×3 (05:14→21:33)
[2021-04-15 06:14] LABS: Platelet Count 119 K/mm3 (140-440)
--- NOTE | 2021-04-15 08:33 | XRay Report ---
ABDOMEN 2 VIEW(S) INDICATION / CLINICAL INFORMATION: sbo. COMPARISON: Yesterday FINDINGS: TUBES / LINES: The nasogastric tube has been retracted slightly with the sidehole terminating near th e GE junction. Consider advancement by 5-10 cm. BOWEL GAS PATTERN: There is moderate fecal retention throughout the colon. No dilated bowel or large air-fluid levels are identified. Surgical changes are suggested in the left upper quadrant, correlate with history. Cholecystectomy is also noted. FREE AIR / EXTRALUMINAL GAS: None seen. ADDITIONAL FINDINGS: No significant additional findings. IMPRESSION: Consider advancement of the nasogastric tube. Moderate fecal retention. Signer Name: Luigi Griggs Jr, MD Signed: 04/15/2021 8:28 AM Workstation Name: [id number]
[2021-04-15] MEDS: PANTOPRAZOLE 40 MG INJ IV SCH ×2 (08:59→22:41)
--- NOTE | 2021-04-15 11:57 | Progress Note ---
Assessment and Plan Assessment and plan: -- Abdominal pain Current Visit: Yes Status: Acute N.p.o. status, IV fluids --Intractable nausea and vomiting Current Visit: Yes Status: Acute IV fluids antiemetics supportive care Continue Protonix --SBO (small bowel obstruction) Current Visit: Yes Status: Acute Intermittent NG tube suction. Nothing by mouth. D5 half-normal saline at the rate of 125 cc/h. Protonix 40 mg IV every 12 hours. Surgery following Serial abdominal x-rays Possible DC NG tube and clear liquids after surgery evaluates the patient --h/o Gastric bypass surgery[weight reduction procedure] Current Visit: Yes Status: Acute Patient has a history of gastric bypass surgery in 2014, 2018 and abdominal surgery in February 2021 Possible cause of obstruction adhesions. Protonix --GERD Protonix --Obesity BMI 33.6; Diet modification, exercise as tolerated . and weight reduction -- DVT prophylaxis Current Visit: Yes Status: Acute Heparin 5000 units subcu every 8 hours per DVT prophylaxis. Follow surgery evaluation recommendations We will closely monitor the patient and adjust management as needed. Plan of care reviewed with patient and her nurse 04/15/2021; continue current management Follow general surgery evaluation recommendations Possible discharge home in 1 to 2 days if stable History Interval history: I have seen and examined the patient at the bedside Patient's chart and medications reviewed Patient has NG tube with intermittent suction n.p.o. status Feels slightly better Vital signs noted Hospitalist Physical - Constitutional Vitals: Temp Pulse Resp BP Pulse Ox 97.7 F 100 H 18 160/97 100 04/15/21 11:12 04/15/21 11:12 04/15/21 11:12 04/15/21 11:12 04/15/21 11:12 General appearance: Present: no acute distress, well-nourished - EENT Eyes: Present: PERRL, EOM intact - Neck Neck: Present: supple, normal ROM - Respiratory Respiratory effort: normal Respiratory: bilateral: diminished, negative: rales, rhonchi, wheezing - Cardiovascular Rhythm: regular Heart Sounds: Present: S1 & S2 - Extremities Extremities: no ischemia, pulses intact - Abdominal General gastrointestinal: soft, non-tender, non-distended, normal bowel sounds, hypoactive bowel sounds - Integumentary Integumentary: Present: clear, warm - Psychiatric Psychiatric: appropriate mood/affect, cooperative - Neurologic Neurologic: moves all extremities Results - Labs CBC & Chem 7: 04/15/21 04:25 04/15/21 04:25 Labs: Laboratory Last Values WBC 12.2 K/mm3 (4.5-11.0) H 04/15/21 04:25 RBC 3.71 M/mm3 (3.65-5.03) 04/15/21 04:25 Hgb 11.8 gm/dl (10.1-14.3) 04/15/21 04:25 Hct 36.0 % (30.3-42.9) 04/15/21 04:25 MCV 97 fl (79-97) 04/15/21 04:25 MCH 32 pg (28-32) 04/15/21 04:25 MCHC 33 % (30-34) 04/15/21 04:25 RDW 14.0 % (13.2-15.2) 04/15/21 04:25 Plt Count 119 K/mm3 (140-440) L 04/15/21 04:25 Lymph % (Auto) 12.6 % (13.4-35.0) L 04/15/21 04:25 [place] % (Auto) 8.3 % (0.0-7.3) H 04/15/21 04:25 Eos % (Auto) 1.7 % (0.0-4.3) 04/15/21 04:25 Baso % (Auto) 0.7 % (0.0-1.8) 04/15/21 04:25 Lymph # (Auto) 1.5 K/mm3 (1.2-5.4) 04/15/21 04:25 [place] # (Auto) 1.0 K/mm3 (0.0-0.8) H 04/15/21 04:25 Eos # (Auto) 0.2 K/mm3 (0.0-0.4) 04/15/21 04:25 Baso # (Auto) 0.1 K/mm3 (0.0-0.1) 04/15/21 04:25 Seg Neutrophils % 76.7 % (40.0-70.0) H 04/15/21 04:25 Seg Neutrophils # 9.4 K/mm3 (1.8-7.7) H 04/15/21 04:25 Sodium 134 mmol/L (137-145) L 04/15/21 04:25 Potassium 3.6 mmol/L (3.6-5.0) 04/15/21 04:25 Chloride 102.1 mmol/L (98-107) 04/15/21 04:25 Carbon Dioxide 24 mmol/L (22-30) 04/15/21 04:25 Anion Gap 12 mmol/L 04/15/21 04:25 BUN 10 mg/dL (7-17) 04/15/21 04:25 Creatinine 0.5 mg/dL (0.6-1.2) L 04/15/21 04:25 Estimated GFR > 60 ml/min 04/15/21 04:25 BUN/Creatinine Ratio 20 % 04/15/21 04:25 Glucose 102 mg/dL (65-100) H 04/15/21 04:25 Lactic Acid 1.20 mmol/L (0.7-2.0) 04/14/21 04:02 Calcium 8.6 mg/dL (8.4-10.2) 04/15/21 04:25 Phosphorus 3.90 mg/dL (2.5-4.5) 04/15/21 04:25 Magnesium 1.60 mg/dL (1.7-2.3) L 04/15/21 04:25 Total Bilirubin 0.30 mg/dL (0.1-1.2) 04/13/21 21:15 AST 18 units/L (5-40) 04/13/21 21:15 ALT 11 units/L (7-56) 04/13/21 21:15 Alkaline Phosphatase 99 units/L (35-129) 04/13/21 21:15 Total Protein 6.6 g/dL (6.3-8.2) 04/13/21 21:15 Albumin 3.1 g/dL (3.9-5) L 04/13/21 21:15 Albumin/Globulin Ratio 0.9 % 04/13/21 21:15 Lipase 39 units/L (13-60) 04/13/21 21:15 HCG, Qual Negative (Negative) 04/13/21 21:15 Urine Color Yellow (Yellow) 04/14/21 01:30 Urine Turbidity Slightly-cloudy (Clear) 04/14/21 01:30 Urine pH 5.0 (5.0-7.0) 04/14/21 01:30 Ur Specific [place] 1.026 (1.003-1.030) 04/14/21 01:30 Urine Protein 30 mg/dl mg/dL (Negative) 04/14/21 01:30 Urine Glucose (UA) Neg mg/dL (Negative) 04/14/21 01:30 Urine Ketones Neg mg/dL (Negative) 04/14/21 01:30 Urine Blood Neg (Negative) 04/14/21 01:30 Urine Nitrite Neg (Negative) 04/14/21 01:30 Ur Reducing Substances Not Reportable 04/14/21 01:30 Urine Bilirubin Neg (Negative) 04/14/21 01:30 Urine Ictotest Not Reportable 04/14/21 01:30 Urine Urobilinogen < 2.0 mg/dL (<2.0) 04/14/21 01:30 Ur Leukocyte Esterase Neg (Negative) 04/14/21 01:30 Urine WBC (Auto) 4.0 /HPF (0.0-6.0) 04/14/21 01:30 Urine RBC (Auto) 7.0 /HPF (0.0-6.0) 04/14/21 01:30 U Epithel Cells (Auto) < 1.0 /HPF (0-13.0) 04/14/21 01:30 Urine Bacteria (Auto) 1+ /HPF (Negative) 04/14/21 01:30 Calcium Oxalate Crystal 1+ 04/14/21 01:30 Urine Mucus Few /HPF 04/14/21 01:30 [place]/IV: Voiding Method Toilet Active Medications - Current Medications Current Medications: Generic Name Dose Route Start Last Admin Trade Name Freq PRN Reason Stop Dose Admin Acetaminophen 650 mg 04/14/21 04:43 04/14/21 20:37 Acetaminophen 325 Mg Tab PO 650 mg Q4H PRN Administration Pain MILD(1-3)/Fever >100.5/BLOOM Albuterol 2.5 mg 04/14/21 04:43 Albuterol 2.5 Mg/3 Ml Nebu IH Q4HRT PRN Shortness Of Breath Dicyclomine HCl 10 mg 04/14/21 10:00 04/14/21 20:45 Dicyclomine 10 Mg Cap PO 10 mg QID PRN Administration Spasms Heparin Sodium (Porcine) 5,000 unit 04/14/21 06:00 04/15/21 05:14 Heparin 5,000 Unit/1 Ml Vial SUB-Q 5,000 unit Q8HR MOR Administration Hydralazine HCl 10 mg 04/14/21 04:45 04/15/21 04:43 Hydralazine 20 Mg/1 Ml Inj IV 10 mg Q6H PRN Administration htn Dextrose/Sodium Chloride 1,000 mls @ 125 mls/hr 04/14/21 05:00 04/15/21 09:04 D5/0.45ns IV 125 mls/hr DIRECT MOR Administration Metoclopramide HCl 10 mg 04/14/21 04:43 04/15/21 00:12 Metoclopramide 10 Mg/2 Ml Inj IV 10 mg Q6H PRN Administration Nausea And Vomiting Morphine Sulfate 3 mg 04/14/21 03:46 04/15/21 08:54 Morphine 2 Mg/1 Ml Inj IV 3 mg Q4H PRN Administration Pain, Moderate (4-6) Ondansetron HCl 4 mg 04/14/21 04:43 04/14/21 16:54 Ondansetron 4 Mg/2 Ml Inj IV 4 mg Q8H PRN Administration Nausea And Vomiting Pantoprazole Sodium 40 mg 04/14/21 10:00 04/15/21 08:59 Pantoprazole 40 Mg Inj IV 40 mg BID MOR Administration Sodium Chloride 10 ml 04/14/21 10:00 04/15/21 00:12 Sodium Chloride 0.9% 10 Ml Flush Syringe IV 10 ml BID MOR Administration Sodium Chloride 10 ml 04/14/21 04:43 Sodium Chloride 0.9% 10 Ml Flush Syringe IV PRN PRN LINE FLUSH
--- NOTE | 2021-04-15 14:16 | Progress Note ---
Assessment and Plan - Patient Problems (1) SBO (small bowel obstruction) Current Visit: Yes Status: Acute Plan to address problem: 1) DC NG and give clear liquids 2) CBC and AXR in the am Subjective Date of service: 04/15/21 Patient Reports: Positive: no new complaints, feels better, pain is less, flatus Objective Vital Signs - 12hr 04/15/21 04/15/21 04/15/21 04:33 07:20 11:12 Temperature 98.3 F 97.4 F L 97.7 F Pulse Rate 101 H 108 H 100 H Respiratory 16 18 18 Rate Blood Pressure 157/64 160/97 Blood Pressure 159/102 [Left] O2 Sat by Pulse 98 100 100 Oximetry 04/15/21 11:57 Temperature Pulse Rate 100 H Respiratory Rate Blood Pressure 160/97 Blood Pressure [Left] O2 Sat by Pulse Oximetry - Abdomen soft, bowel sounds normal (Minimal LUQ tenderness without rebound or guarding.) - Labs 04/15/21 04:25 04/15/21 04:25 Diabetes panel 04/15/21 Range/Units 04:25 Sodium 134 L (137-145) mmol/L Potassium 3.6 (3.6-5.0) mmol/L Chloride 102.1 (98-107) mmol/L Carbon Dioxide 24 (22-30) mmol/L BUN 10 (7-17) mg/dL Creatinine 0.5 L (0.6-1.2) mg/dL Glucose 102 H (65-100) mg/dL Calcium 8.6 (8.4-10.2) mg/dL Calcium panel 04/15/21 Range/Units 04:25 Calcium 8.6 (8.4-10.2) mg/dL Phosphorus 3.90 (2.5-4.5) mg/dL Pituitary panel 04/15/21 Range/Units 04:25 Sodium 134 L (137-145) mmol/L Potassium 3.6 (3.6-5.0) mmol/L Chloride 102.1 (98-107) mmol/L Carbon Dioxide 24 (22-30) mmol/L BUN 10 (7-17) mg/dL Creatinine 0.5 L (0.6-1.2) mg/dL Glucose 102 H (65-100) mg/dL Calcium 8.6 (8.4-10.2) mg/dL Adrenal panel 04/15/21 Range/Units 04:25 Sodium 134 L (137-145) mmol/L Potassium 3.6 (3.6-5.0) mmol/L Chloride 102.1 (98-107) mmol/L Carbon Dioxide 24 (22-30) mmol/L BUN 10 (7-17) mg/dL Creatinine 0.5 L (0.6-1.2) mg/dL Glucose 102 H (65-100) mg/dL Calcium 8.6 (8.4-10.2) mg/dL - Imaging Abdominal x-ray: report reviewed
[2021-04-15] MEDS: DICYCLOMINE 10 MG CAP PO PRN (14:55)
[2021-04-15] MEDS: ACETAMINOPHEN 325 MG TAB PO PRN (19:56)
[2021-04-15] MEDS ORDERED: oxyCODONE /ACETAMINOPHEN 5-325MG TAB PO PRN (20:06)
[2021-04-15] MEDS: ONDANSETRON 4 MG/2 ML INJ IV PRN (22:41)
[2021-04-16] MEDS: diphenhydrAMINE 50 MG/ML VIAL IV PRN (00:58)
[2021-04-16] MEDS: MORPHINE 2 MG/1 ML INJ IV PRN ×4 (02:41→21:54)
[2021-04-16] MEDS: HEPARIN 5,000 UNIT/1 ML VIAL SUB-Q SCH ×3 (05:50→21:57)
[2021-04-16 08:03] LABS: Basophils # (Auto) 0.1 K/mm3 (0.0-0.1); Eosinophils # (Auto) 0.3 K/mm3 (0.0-0.4); Eosinophils % (Auto) 3.4 % (0.0-4.3); Hemoglobin 10.4 gm/dl (10.1-14.3); Lymphocytes # (Auto) 2.2 K/mm3 (1.2-5.4); Lymphocytes % (Auto) 22.3 % (13.4-35.0); Mean Corpuscular HGB Conc 34 % (30-34); Mean Corpuscular Volume 95 fl (79-97); Monocytes % (Auto) 10.4 % (0.0-7.3); Red Blood Count 3.26 M/mm3 (3.65-5.03); Red Cell Distribution Width 13.9 % (13.2-15.2)
[2021-04-16 08:13] LABS: Platelet Count 161 K/mm3 (140-440)
--- NOTE | 2021-04-16 08:44 | Progress Note ---
Assessment and Plan Assessment and plan: -- Abdominal pain Current Visit: Yes Status: Acute Slightly improved NG tube removed started on clear liquids Follow today's abdominal x-ray, advance diet if negative Surgery following --Intractable nausea and vomiting Current Visit: Yes Status: Acute IV fluids antiemetics supportive care Significantly improved tolerating clear liquids --SBO (small bowel obstruction) Current Visit: Yes Status: Acute Intermittent NG tube suction. Nothing by mouth. D5 half-normal saline at the rate of 125 cc/h. Protonix 40 mg IV every 12 hours. Surgery following Serial abdominal x-rays Possible DC NG tube and clear liquids after surgery evaluates the patient --h/o Gastric bypass surgery[weight reduction procedure] Current Visit: Yes Status: Acute Patient has a history of gastric bypass surgery in 2014, 2018 and abdominal surgery in February 2021 Possible cause of obstruction adhesions. Protonix -Mild hyponatremia; Normal saline, closely monitor electrolytes -GERD Protonix --Obesity BMI 33.6; Diet modification, exercise as tolerated . and weight reduction -- DVT prophylaxis Current Visit: Yes Status: Acute Heparin 5000 units subcu every 8 hours per DVT prophylaxis. Follow surgery evaluation recommendations We will closely monitor the patient and adjust management as needed. Plan of care reviewed with patient and her nurse 04/15/2021; continue current management Follow general surgery evaluation recommendations Possible discharge home in 1 to 2 days if stable 04/16/2021; NG tube discontinued Started on clear liquids patient is tolerating well Repeat abdominal x-ray tomorrow Possible discharge in 1 to 2 days if stable History Interval history: I have seen and examined the patient at the bedside , patient's chart and medications reviewed. Patient feels slightly better, NG tube is discontinued Started on clear liquids patient is tolerating Vital signs noted Hospitalist Physical - Constitutional Vitals: Temp Pulse Resp BP Pulse Ox 97.9 F 96 H 17 113/67 98 04/16/21 05:25 04/16/21 05:25 04/16/21 05:50 04/16/21 05:25 04/16/21 05:25 General appearance: Present: no acute distress, well-nourished - EENT Eyes: Present: PERRL, EOM intact - Neck Neck: Present: supple, normal ROM - Respiratory Respiratory effort: normal Respiratory: bilateral: diminished, negative: rales, rhonchi, wheezing - Cardiovascular Rhythm: regular Heart Sounds: Present: S1 & S2 - Extremities Extremities: no ischemia, No edema - Abdominal General gastrointestinal: soft, non-tender, non-distended, hypoactive bowel sounds - Integumentary Integumentary: Present: clear, warm - Psychiatric Psychiatric: appropriate mood/affect, cooperative - Neurologic Neurologic: CNII-XII intact, moves all extremities Results - Labs CBC & Chem 7: 04/16/21 07:32 04/15/21 04:25 Labs: Laboratory Last Values WBC 10.1 K/mm3 (4.5-11.0) 04/16/21 07:32 RBC 3.26 M/mm3 (3.65-5.03) L 04/16/21 07:32 Hgb 10.4 gm/dl (10.1-14.3) 04/16/21 07:32 Hct 31.0 % (30.3-42.9) 04/16/21 07:32 MCV 95 fl (79-97) 04/16/21 07:32 MCH 32 pg (28-32) 04/16/21 07:32 MCHC 34 % (30-34) 04/16/21 07:32 RDW 13.9 % (13.2-15.2) 04/16/21 07:32 Plt Count 161 K/mm3 (140-440) 04/16/21 07:32 Lymph % (Auto) 22.3 % (13.4-35.0) 04/16/21 07:32 [place] % (Auto) 10.4 % (0.0-7.3) H 04/16/21 07:32 Eos % (Auto) 3.4 % (0.0-4.3) 04/16/21 07:32 Baso % (Auto) 1.0 % (0.0-1.8) 04/16/21 07:32 Lymph # (Auto) 2.2 K/mm3 (1.2-5.4) 04/16/21 07:32 [place] # (Auto) 1.0 K/mm3 (0.0-0.8) H 04/16/21 07:32 Eos # (Auto) 0.3 K/mm3 (0.0-0.4) 04/16/21 07:32 Baso # (Auto) 0.1 K/mm3 (0.0-0.1) 04/16/21 07:32 Seg Neutrophils % 62.9 % (40.0-70.0) 04/16/21 07:32 Seg Neutrophils # 6.4 K/mm3 (1.8-7.7) 04/16/21 07:32 Sodium 134 mmol/L (137-145) L 04/15/21 04:25 Potassium 3.6 mmol/L (3.6-5.0) 04/15/21 04:25 Chloride 102.1 mmol/L (98-107) 04/15/21 04:25 Carbon Dioxide 24 mmol/L (22-30) 04/15/21 04:25 Anion Gap 12 mmol/L 04/15/21 04:25 BUN 10 mg/dL (7-17) 04/15/21 04:25 Creatinine 0.5 mg/dL (0.6-1.2) L 04/15/21 04:25 Estimated GFR > 60 ml/min 04/15/21 04:25 BUN/Creatinine Ratio 20 % 04/15/21 04:25 Glucose 102 mg/dL (65-100) H 04/15/21 04:25 Lactic Acid 1.20 mmol/L (0.7-2.0) 04/14/21 04:02 Calcium 8.6 mg/dL (8.4-10.2) 04/15/21 04:25 Phosphorus 3.90 mg/dL (2.5-4.5) 04/15/21 04:25 Magnesium 1.60 mg/dL (1.7-2.3) L 04/15/21 04:25 Total Bilirubin 0.30 mg/dL (0.1-1.2) 04/13/21 21:15 AST 18 units/L (5-40) 04/13/21 21:15 ALT 11 units/L (7-56) 04/13/21 21:15 Alkaline Phosphatase 99 units/L (35-129) 04/13/21 21:15 Total Protein 6.6 g/dL (6.3-8.2) 04/13/21 21:15 Albumin 3.1 g/dL (3.9-5) L 04/13/21 21:15 Albumin/Globulin Ratio 0.9 % 04/13/21 21:15 Lipase 39 units/L (13-60) 04/13/21 21:15 HCG, Qual Negative (Negative) 04/13/21 21:15 Urine Color Yellow (Yellow) 04/14/21 01:30 Urine Turbidity Slightly-cloudy (Clear) 04/14/21 01:30 Urine pH 5.0 (5.0-7.0) 04/14/21 01:30 Ur Specific [place] 1.026 (1.003-1.030) 04/14/21 01:30 Urine Protein 30 mg/dl mg/dL (Negative) 04/14/21 01:30 Urine Glucose (UA) Neg mg/dL (Negative) 04/14/21 01:30 Urine Ketones Neg mg/dL (Negative) 04/14/21 01:30 Urine Blood Neg (Negative) 04/14/21 01:30 Urine Nitrite Neg (Negative) 04/14/21 01:30 Ur Reducing Substances Not Reportable 04/14/21 01:30 Urine Bilirubin Neg (Negative) 04/14/21 01:30 Urine Ictotest Not Reportable 04/14/21 01:30 Urine Urobilinogen < 2.0 mg/dL (<2.0) 04/14/21 01:30 Ur Leukocyte Esterase Neg (Negative) 04/14/21 01:30 Urine WBC (Auto) 4.0 /HPF (0.0-6.0) 04/14/21 01:30 Urine RBC (Auto) 7.0 /HPF (0.0-6.0) 04/14/21 01:30 U Epithel Cells (Auto) < 1.0 /HPF (0-13.0) 04/14/21 01:30 Urine Bacteria (Auto) 1+ /HPF (Negative) 04/14/21 01:30 Calcium Oxalate Crystal 1+ 04/14/21 01:30 Urine Mucus Few /HPF 04/14/21 01:30 Kaba/IV: Voiding Method Toilet Active Medications - Current Medications Current Medications: Generic Name Dose Route Start Last Admin Trade Name Freq PRN Reason Stop Dose Admin Acetaminophen 650 mg 04/14/21 04:43 04/15/21 19:56 Acetaminophen 325 Mg Tab PO 650 mg Q4H PRN Administration Pain MILD(1-3)/Fever >100.5/BLOOM Albuterol 2.5 mg 04/14/21 04:43 Albuterol 2.5 Mg/3 Ml Nebu IH Q4HRT PRN Shortness Of Breath Dicyclomine HCl 10 mg 04/14/21 10:00 04/15/21 14:55 Dicyclomine 10 Mg Cap PO 10 mg QID PRN Administration Spasms Diphenhydramine HCl 25 mg 04/16/21 00:31 04/16/21 00:58 Diphenhydramine 50 Mg/Ml Vial IV 25 mg Q6H PRN Administration Itching Heparin Sodium (Porcine) 5,000 unit 04/14/21 06:00 04/16/21 05:50 Heparin 5,000 Unit/1 Ml Vial SUB-Q 5,000 unit Q8HR MOR Administration Hydralazine HCl 10 mg 04/14/21 04:45 04/15/21 11:57 Hydralazine 20 Mg/1 Ml Inj IV 10 mg Q6H PRN Administration htn Dextrose/Sodium Chloride 1,000 mls @ 125 mls/hr 04/14/21 05:00 04/15/21 09:04 D5/0.45ns IV 125 mls/hr DIRECT MOR Administration Metoclopramide HCl 10 mg 04/14/21 04:43 04/15/21 00:12 Metoclopramide 10 Mg/2 Ml Inj IV 10 mg Q6H PRN Administration Nausea And Vomiting Morphine Sulfate 3 mg 04/14/21 03:46 04/16/21 02:41 Morphine 2 Mg/1 Ml Inj IV 3 mg Q4H PRN Administration Pain, Moderate (4-6) Ondansetron HCl 4 mg 04/14/21 04:43 04/15/21 22:41 Ondansetron 4 Mg/2 Ml Inj IV 4 mg Q8H PRN Administration Nausea And Vomiting Oxycodone/Acetaminophen 1 tab 04/15/21 20:06 04/16/21 05:50 Oxycodone /Acetaminophen 5-325mg Tab PO 1 tab Q8H PRN Administration Pain, Moderate (4-6) Pantoprazole Sodium 40 mg 04/14/21 10:00 04/15/21 22:41 Pantoprazole 40 Mg Inj IV 40 mg BID MOR Administration Sodium Chloride 10 ml 04/14/21 10:00 04/15/21 22:42 Sodium Chloride 0.9% 10 Ml Flush Syringe IV 10 ml BID MOR Administration Sodium Chloride 10 ml 04/14/21 04:43 Sodium Chloride 0.9% 10 Ml Flush Syringe IV PRN PRN LINE FLUSH
[2021-04-16] MEDS: PANTOPRAZOLE 40 MG INJ IV SCH ×2 (09:10→21:49)
--- NOTE | 2021-04-16 09:36 | XRay Report ---
Abdominal series INDICATION: Small bowel obstruction FINDINGS: There is mild distention of the bowel gas loops with fecal material and gas throughout. The re is signal material in the distal sigmoid colon and rectum. Nonspecific bowel gas. No free air is s een. Signer Name: Sam Singh MD Signed: 04/16/2021 9:32 AM Workstation Name: [id number]
--- NOTE | 2021-04-16 12:21 | Progress Note ---
Assessment and Plan - Patient Problems (1) SBO (small bowel obstruction) Current Visit: Yes Status: Acute Plan to address problem: 1) FLD 2) Home tomorrow if no problems Subjective Date of service: 04/16/21 Patient Reports: Positive: no new complaints, feels better, pain is less, tole rating liquids well, flatus, no bowel movement Objective Vital Signs - 12hr 04/16/21 04/16/21 04/16/21 02:41 03:11 05:25 Temperature 97.9 F Pulse Rate 96 H Respiratory 17 17 18 Rate Blood Pressure 113/67 O2 Sat by Pulse 98 Oximetry 04/16/21 04/16/21 04/16/21 05:50 07:24 09:35 Temperature 97.7 F Pulse Rate 84 Respiratory 17 18 Rate Blood Pressure 125/88 O2 Sat by Pulse 100 99 Oximetry 04/16/21 09:42 Temperature Pulse Rate Respiratory 18 Rate Blood Pressure O2 Sat by Pulse Oximetry - Abdomen soft, bowel sounds normal (NT) - Labs 04/16/21 07:32 04/15/21 04:25
[2021-04-17] MEDS: MORPHINE 2 MG/1 ML INJ IV PRN (04:34)
[2021-04-17] MEDS: diphenhydrAMINE 50 MG/ML VIAL IV PRN (05:00)
[2021-04-17] MEDS: HEPARIN 5,000 UNIT/1 ML VIAL SUB-Q SCH (05:05)
[2021-04-17 08:45] VITALS: BP 107/70
--- NOTE | 2021-04-17 10:52 | Progress Note ---
Assessment and Plan - Patient Problems (1) SBO (small bowel obstruction) Current Visit: Yes Status: Acute Plan to address problem: 1) Continues to improve. 2) Can be discharged from my perspective. 3) Full liquid diet today. Then diet as tolerated. 4) Activity ad modesta 5) No Rx 6) F/u with me only if she has problems. Subjective Date of service: 04/17/21 Patient Reports: Positive: no new complaints, feels better, tolerating liquids well, flatus, no bowel movement (Denies abdominal pain.) Objective Vital Signs - 12hr 04/16/21 04/17/21 23:07 04:30 Temperature 98.2 F 97.7 F Pulse Rate 101 H 117 H Respiratory 16 16 Rate Blood Pressure 108/73 129/84 [Left] O2 Sat by Pulse 100 100 Oximetry - Abdomen soft, bowel sounds normal (NT, ND) - Labs 04/16/21 07:32 04/15/21 04:25
--- NOTE | 2021-04-17 12:21 | Progress Note ---
Hospitalist Physical - Constitutional Vitals: Temp Pulse Resp BP Pulse Ox 97.7 F 117 H 16 129/84 100 04/17/21 04:30 04/17/21 04:30 04/17/21 04:30 04/17/21 04:30 04/17/21 04:30 General appearance: Present: no acute distress, well-nourished Results - Labs CBC & Chem 7: 04/16/21 07:32 04/15/21 04:25 Labs: Laboratory Last Values WBC 10.1 K/mm3 (4.5-11.0) 04/16/21 07:32 RBC 3.26 M/mm3 (3.65-5.03) L 04/16/21 07:32 Hgb 10.4 gm/dl (10.1-14.3) 04/16/21 07:32 Hct 31.0 % (30.3-42.9) 04/16/21 07:32 MCV 95 fl (79-97) 04/16/21 07:32 MCH 32 pg (28-32) 04/16/21 07:32 MCHC 34 % (30-34) 04/16/21 07:32 RDW 13.9 % (13.2-15.2) 04/16/21 07:32 Plt Count 161 K/mm3 (140-440) 04/16/21 07:32 Lymph % (Auto) 22.3 % (13.4-35.0) 04/16/21 07:32 [place] % (Auto) 10.4 % (0.0-7.3) H 04/16/21 07:32 Eos % (Auto) 3.4 % (0.0-4.3) 04/16/21 07:32 Baso % (Auto) 1.0 % (0.0-1.8) 04/16/21 07:32 Lymph # (Auto) 2.2 K/mm3 (1.2-5.4) 04/16/21 07:32 [place] # (Auto) 1.0 K/mm3 (0.0-0.8) H 04/16/21 07:32 Eos # (Auto) 0.3 K/mm3 (0.0-0.4) 04/16/21 07:32 Baso # (Auto) 0.1 K/mm3 (0.0-0.1) 04/16/21 07:32 Seg Neutrophils % 62.9 % (40.0-70.0) 04/16/21 07:32 Seg Neutrophils # 6.4 K/mm3 (1.8-7.7) 04/16/21 07:32 Sodium 134 mmol/L (137-145) L 04/15/21 04:25 Potassium 3.6 mmol/L (3.6-5.0) 04/15/21 04:25 Chloride 102.1 mmol/L (98-107) 04/15/21 04:25 Carbon Dioxide 24 mmol/L (22-30) 04/15/21 04:25 Anion Gap 12 mmol/L 04/15/21 04:25 BUN 10 mg/dL (7-17) 04/15/21 04:25 Creatinine 0.5 mg/dL (0.6-1.2) L 04/15/21 04:25 Estimated GFR > 60 ml/min 04/15/21 04:25 BUN/Creatinine Ratio 20 % 04/15/21 04:25 Glucose 102 mg/dL (65-100) H 04/15/21 04:25 Lactic Acid 1.20 mmol/L (0.7-2.0) 04/14/21 04:02 Calcium 8.6 mg/dL (8.4-10.2) 04/15/21 04:25 Phosphorus 3.90 mg/dL (2.5-4.5) 04/15/21 04:25 Magnesium 1.60 mg/dL (1.7-2.3) L 04/15/21 04:25 Total Bilirubin 0.30 mg/dL (0.1-1.2) 04/13/21 21:15 AST 18 units/L (5-40) 04/13/21 21:15 ALT 11 units/L (7-56) 04/13/21 21:15 Alkaline Phosphatase 99 units/L (35-129) 04/13/21 21:15 Total Protein 6.6 g/dL (6.3-8.2) 04/13/21 21:15 Albumin 3.1 g/dL (3.9-5) L 04/13/21 21:15 Albumin/Globulin Ratio 0.9 % 04/13/21 21:15 Lipase 39 units/L (13-60) 04/13/21 21:15 HCG, Qual Negative (Negative) 04/13/21 21:15 Urine Color Yellow (Yellow) 04/14/21 01:30 Urine Turbidity Slightly-cloudy (Clear) 04/14/21 01:30 Urine pH 5.0 (5.0-7.0) 04/14/21 01:30 Ur Specific [place] 1.026 (1.003-1.030) 04/14/21 01:30 Urine Protein 30 mg/dl mg/dL (Negative) 04/14/21 01:30 Urine Glucose (UA) Neg mg/dL (Negative) 04/14/21 01:30 Urine Ketones Neg mg/dL (Negative) 04/14/21 01:30 Urine Blood Neg (Negative) 04/14/21 01:30 Urine Nitrite Neg (Negative) 04/14/21 01:30 Ur Reducing Substances Not Reportable 04/14/21 01:30 Urine Bilirubin Neg (Negative) 04/14/21 01:30 Urine Ictotest Not Reportable 04/14/21 01:30 Urine Urobilinogen < 2.0 mg/dL (<2.0) 04/14/21 01:30 Ur Leukocyte Esterase Neg (Negative) 04/14/21 01:30 Urine WBC (Auto) 4.0 /HPF (0.0-6.0) 04/14/21 01:30 Urine RBC (Auto) 7.0 /HPF (0.0-6.0) 04/14/21 01:30 U Epithel Cells (Auto) < 1.0 /HPF (0-13.0) 04/14/21 01:30 Urine Bacteria (Auto) 1+ /HPF (Negative) 04/14/21 01:30 Calcium Oxalate Crystal 1+ 04/14/21 01:30 Urine Mucus Few /HPF 04/14/21 01:30 Kaba/IV: Voiding Method Toilet Active Medications - Current Medications Current Medications: Generic Name Dose Route Start Last Admin Trade Name Freq PRN Reason Stop Dose Admin Acetaminophen 650 mg 04/14/21 04:43 04/15/21 19:56 Acetaminophen 325 Mg Tab PO 650 mg Q4H PRN Administration Pain MILD(1-3)/Fever >100.5/BLOOM Albuterol 2.5 mg 04/14/21 04:43 Albuterol 2.5 Mg/3 Ml Nebu IH Q4HRT PRN Shortness Of Breath Dicyclomine HCl 10 mg 04/14/21 10:00 04/15/21 14:55 Dicyclomine 10 Mg Cap PO 10 mg QID PRN Administration Spasms Diphenhydramine HCl 25 mg 04/16/21 00:31 04/17/21 05:00 Diphenhydramine 50 Mg/Ml Vial IV 25 mg Q6H PRN Administration Itching Heparin Sodium (Porcine) 5,000 unit 04/14/21 06:00 04/17/21 05:05 Heparin 5,000 Unit/1 Ml Vial SUB-Q 5,000 unit Q8HR MOR Administration Hydralazine HCl 10 mg 04/14/21 04:45 04/15/21 11:57 Hydralazine 20 Mg/1 Ml Inj IV 10 mg Q6H PRN Administration htn Dextrose/Sodium Chloride 1,000 mls @ 125 mls/hr 04/14/21 05:00 04/15/21 09:04 D5/0.45ns IV 125 mls/hr DIRECT MOR Administration Metoclopramide HCl 10 mg 04/14/21 04:43 04/15/21 00:12 Metoclopramide 10 Mg/2 Ml Inj IV 10 mg Q6H PRN Administration Nausea And Vomiting Morphine Sulfate 3 mg 04/14/21 03:46 04/17/21 04:34 Morphine 2 Mg/1 Ml Inj IV 3 mg Q4H PRN Administration Pain, Moderate (4-6) Ondansetron HCl 4 mg 04/14/21 04:43 04/15/21 22:41 Ondansetron 4 Mg/2 Ml Inj IV 4 mg Q8H PRN Administration Nausea And Vomiting Oxycodone/Acetaminophen 1 tab 04/15/21 20:06 04/16/21 05:50 Oxycodone /Acetaminophen 5-325mg Tab PO 1 tab Q8H PRN Administration Pain, Moderate (4-6) Pantoprazole Sodium 40 mg 04/14/21 10:00 04/16/21 21:49 Pantoprazole 40 Mg Inj IV 40 mg BID MOR Administration Sodium Chloride 10 ml 04/14/21 10:00 04/16/21 21:51 Sodium Chloride 0.9% 10 Ml Flush Syringe IV 10 ml BID MOR Administration Sodium Chloride 10 ml 04/14/21 04:43 Sodium Chloride 0.9% 10 Ml Flush Syringe IV PRN PRN LINE FLUSH
--- NOTE | 2021-04-17 12:25 | Discharge Summary ---
Providers - Providers Date of Admission: 04/14/21 03:46 Date of discharge: 04/17/21 Attending physician: GABRIEL WRIGHT 04/14/21 03:47 Consult to Physician [CONS] Stat Comment: Dr. Vaughn spoke with Dr. Doe @ [phone] Consulting Provider: JES DOE Physician Instructions: Reason For Exam: small bowel obstruction Primary care physician: [employer] Hospitalization Reason for admission: Nausea vomiting abdominal pain/small bowel obstruction Condition: Stable Pertinent studies: CT abdomen and pelvis; small bowel obstruction and other findings Serial abdominal x-ray Hospital course: 35-year-old obese female patient with history of gastric bypass surgery was admitted through emergency room with complaints of worsening abdominal pain and nausea vomiting of 2 days duration. Initial work-up with CT abdomen and pelvis revealed small bowel obstruction, patient was admitted to the hospital appropriately managed, evaluated by surgeon, recommended conservative management at this point. Patient was placed n.p.o. IV antibiotics IV medications. Patient symptoms slowly but gradually improved, patient was started on clear liquids yesterday and today patient had flatus and some bowel movements Diet advance to full liquids, patient denies any nausea vomiting or abdominal pain no diarrhea Patient is hemodynamically and clinically stable. Patient advised the patient to follow-up with primary care physician, advised to advance diet slowly as tolerated Advised her to follow-up with him in 2 to 3 weeks if needed. He will see his primary care physician within 3 to 4 days Patient is stable at discharge Discharge diagnosis; --Small bowel obstruction --Intractable nausea vomiting resolved --History of gastric bypass surgery --History of recurrent small bowel obstructions in the past --GERD --Obesity BMI 33.6 -- Abdominal pain Current Visit: Yes Status: Acute N.p.o. status, IV fluids --Intractable nausea and vomiting Current Visit: Yes Status: Acute IV fluids antiemetics supportive care Continue Protonix --SBO (small bowel obstruction) Current Visit: Yes Status: Acute Intermittent NG tube suction. Nothing by mouth. D5 half-normal saline at the rate of 125 cc/h. Protonix 40 mg IV every 12 hours. Surgery following Serial abdominal x-rays Possible DC NG tube and clear liquids after surgery evaluates the patient --h/o Gastric bypass surgery[weight reduction procedure] Current Visit: Yes Status: Acute Patient has a history of gastric bypass surgery in 2018 and abdominal surgery in February 2021 Possible cause of obstruction adhesions. Protonix --GERD Protonix --Obesity BMI 33.6; Diet modification, exercise as tolerated . and weight reduction -- DVT prophylaxis Current Visit: Yes Status: Acute Heparin 5000 units subcu every 8 hours per DVT prophylaxis. Stable at discharge Disposition: - TO HOME OR SELFCARE Final Discharge Diagnosis (Prints w/discharge instructions): Small bowel obstruction. GERD. Abdominal pain. Intractable nausea vomiting. History of gastric bypass surgery. Obesity BMI 33.6 Time spent for discharge: 35 min Core Measure Documentation - Palliative Care Palliative Care/ Comfort Measures: Not Applicable - Core Measures Any of the following diagnoses?: none Exam - Constitutional Vitals: Temp Pulse Resp BP Pulse Ox 97.7 F 117 H 16 129/84 100 04/17/21 04:30 04/17/21 04:30 04/17/21 04:30 04/17/21 04:30 04/17/21 04:30 General appearance: Present: no acute distress, well-nourished - EENT Eyes: Present: PERRL, EOM intact - Neck Neck: Present: supple, normal ROM - Respiratory Respiratory effort: normal Respiratory: bilateral: diminished, negative: rales, rhonchi, wheezing - Cardiovascular Rhythm: regular Heart Sounds: Present: S1 & S2 - Extremities Extremities: no ischemia, No edema - Abdominal General gastrointestinal: Present: soft, non-tender, non-distended, normal bowel sounds - Integumentary Integumentary: Present: clear, warm - Musculoskeletal Musculoskeletal: strength equal bilaterally, generalized weakness - Psychiatric Psychiatric: appropriate mood/affect, agitated - Neurologic Neurologic: moves all extremities Plan Activity: advance as tolerated Diet: regular Additional Instructions: Follow surgeon Dr. Doe'rea in 2 weeks if needed only. Advance diet as tolerated. If you have worsening symptoms contact MD or go to emergency room as needed Follow up with: PRIMARY CARE,MD [Primary Care Provider] - 3-5 Days Prescriptions: Dicyclomine [Bentyl] 10 mg PO QID PRN #20 capsule PRN Reason: Spasms Pantoprazole [Protonix TAB] 20 mg PO DAILY #14 tablet.
== END 2021-04-17 13:45 | disposition home or self-care (01) | DRG 389 ==
LOC: ED 20:37 → 3B-SURG 04-14 03:46
PROVIDERS: ADMIT Hospitalist; ATTEND Internal Medicine
PROC: 0D9670Z Drainage of Stomach with Drainage Device, Via Natural or Artificial Opening (ICD-10-PCS; principal; 2021-04-14)
DX: K56.609 Unspecified intestinal obstruction, unspecified as to partial versus complete obstruction (principal); E87.1 Hypo-osmolality and hyponatremia; K21.9 Gastro-esophageal reflux disease without esophagitis; E66.9 Obesity, unspecified; Z91.040 Latex allergy status; Z68.33 Body mass index [BMI] 33.0-33.9, adult; Z98.84 Bariatric surgery status
CPT/HCPCS: 36415; 74018; 74019; 74177; 80048; 80053; 81001; 82140; 83690; 83735; 84100; 84703; 85025; 94640; 96374; 96375; 96376; G0378; J7070; C9113; J0360; J1200; J1644; J2270; J2405; J2765; Q9967